=== PATIENT | female | born 1990 | race Hispanic/Latino ===

== ENCOUNTER 2018-06-20 17:21 | Emergency (ER) | payer OTHER ==
[~2018-06-20] VITALS: Ht 149.9 cm; Wt 56.0 kg
[2018-06-20] MEDS ORDERED: PEPCID20 MG PO (20:03)
[2018-06-20 20:14] VITALS: BP 113/68
== END 2018-06-20 20:15 | disposition home or self-care (01) ==
LOC: EME 17:21
DX: O99.711 Diseases of the skin and subcutaneous tissue complicating pregnancy, first trimester (principal); T78.40XA Allergy, unspecified, initial encounter; L50.9 Urticaria, unspecified; Z3A.08 8 weeks gestation of pregnancy
CPT/HCPCS: 99281; 99284; J1100; J1200; J7030; S0028